=== PATIENT | male | born 1955 | race Caucasian/White ===

== ENCOUNTER → 2017-11-03 | Outpatient (CLI) | payer MEDICARE, OTHER ==
--- NOTE | 2017-11-03 15:30 | MR ---
EXAMINATION TYPE: MR cervical spine wo/w con DATE OF EXAM: 11/03/2017 COMPARISON: NONE HISTORY: Spondylosis with radiculopathy, cervical TECHNIQUE: Multiplanar, multisequence images of the cervical spine were acquired utilizing 7.5 mL intravenous Ga davist gadolinium contrast. C2-C3: No evidence for degenerative disc disease. No disc bulge/herniation or protrusion. No Canal stenosis. Foramina are patent bilaterally. C3-C4: Right lateral foraminal encroachment is present due to lateral extension of endplate disc comp moe greater than left. No central stenosis. Posterior disc bulge causes only mild anterior mass effec t on the thecal sac somewhat more eccentric towards the left. There is slight anterolateral mass effe ct on the thecal sac. Hypertrophic changes are present anteriorly. C4-C5: Rudimentary disc is present, there is no herniation or central stenosis, neural foraminal encr oachment. C5-C6: Posterior extension of endplate disc complex, retrolisthesis grade 1 C5-6 results in moderate central canal stenosis, there is lateral extension of endplate disc complex causing bilateral foramin al encroachment. C6-C7: There is loss of disc height and signal, posterior extension of endplate disc complex causes m ild anterior mass effect on the thecal sac, mild central stenosis, lateral extension of endplate disc complex causes bilateral foraminal encroachment. C7-T1: Some left-sided foraminal encroachment is present, there is some lateral extension of endplate , no significant disc herniation or central stenosis. Cervical segments are intact. There is reversal of the normal cervical lordosis. 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 Spondylosis is present and C5-6 with endplate discogenic marrow signa l change as well as at C6-7 with associated loss of disc height and signal. Cervical spinal cord is o f normal signal. Craniovertebral junction relationships are within normal limits. C1-2 shows probab le nerve sheath diverticula bilaterally. No abnormal enhancement following contrast administration. M ultilevel facet arthropathy changes are present. 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 Additional findings above.
== END | disposition home or self-care (01) ==
LOC: RADMRIMAIN 11:29
PROVIDERS: ATTEND Family Medicine
DX: M48.02 Spinal stenosis, cervical region (principal); M50.11 Cervical disc disorder with radiculopathy, high cervical region; M43.12 Spondylolisthesis, cervical region; M43.22 Fusion of spine, cervical region; M47.22 Other spondylosis with radiculopathy, cervical region; M48.8X2 Other specified spondylopathies, cervical region; M53.82 Other specified dorsopathies, cervical region; M46.82 Other specified inflammatory spondylopathies, cervical region
CPT/HCPCS: 82565; 72156; A9581

== ENCOUNTER → 2018-09-28 | Outpatient (CLI) | payer MEDICARE, OTHER ==
[2018-09-28 16:17] LABS: HCT 45.9 % (39.0-53.0); HGB 14.8 gm/dL (13.0-17.5); MCH 30.7 pg (25.0-35.0); MCHC 32.2 g/dL (31.0-37.0); MCV 95.4 fL (80.0-100.0); Mean Platelet Volume 6.5; Platelet Count 281 k/uL (150-450); RBC 4.81 m/uL (4.30-5.90); RDW 12.4 % (11.5-15.5)
[2018-09-28 17:40] LABS: Erythrocyte Sedimentation Rate 8 mm/hr (0-15)
[2018-09-29 05:45] LABS: Rheumatoid Factor 6 IU/mL (0-15)
[2018-09-29 07:21] LABS: Angiotensin-1 Converting Enz. 24 U/L (8-52)
[2018-09-29 12:41] LABS: IgG Subclass 3 23.8 mg/dL (11.0-85.0); IgG Subclass 4 15.9 mg/dL (3.0-175.0)
[2018-09-29 14:41] LABS: C-ANCA <1:20 Titer (<1:20); P-ANCA <1:20 Titer (<1:20)
[2018-09-29 15:04] LABS: Thyroid Stim Immun Quant <0.10 IU/L (<0.10)
== END | disposition home or self-care (01) ==
LOC: LABWHC1 15:37
PROVIDERS: ATTEND Ophthalmology Ophthalmic Plastic and Reconstructive Surgery
DX: H05.222 Edema of left orbit (principal)
CPT/HCPCS: 36415; 82164; 82787; 84443; 84445; 85027; 85652; 86038; 86235; 86255; 86376; 86431

== ENCOUNTER 2019-06-12 08:56 | Emergency (ER) | payer MEDICARE, OTHER ==
[2019-06-12 09:08] VITALS: TEMP 98.2
[2019-06-12] MEDS ORDERED: IBUPROFEN 600 MG TAB PO STA (09:50)
--- NOTE | 2019-06-12 10:06 | ED ---
Lower Extremity Injury HPI - General Chief Complaint: Extremity Injury, Lower Stated Complaint: rt knee pain Time Seen by Provider: 06/12/19 09:21 Source: patient, RN notes reviewed, old records reviewed Mode of arrival: ambulatory Limitations: physical limitation - History of Present Illness Initial Comments: This patient's a 63-year-old male, presents emergency department today for evaluation with chief complaint of her right knee pain and swelling. Patient's symptoms started on Wednesday. Patient's symptoms of been worse with ambulation. Patient reports some swelling and pain over the medial aspect of the knee. Patient reports it has happened before where he is required as needed be drained. He states he's previously seen an orthopedic to be drained. Patient has had no other significant complaints at this time. 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 He reports that he was prescribed knee brace would definitely 2 areas causes pressure over his knee. - Related Data Home Medications Medication Instructions Recorded Confirmed Cholecalciferol [Vitamin D3 (25 5,000 unit PO DAILY 06/12/19 06/12/19 Mcg = 1000 Iu)] Ibuprofen [Motrin] 800 mg PO TID PRN 06/12/19 06/12/19 Previous Rx's Medication Instructions Recorded Ibuprofen [Motrin] 600 mg PO Q8HR PRN #30 tab 06/12/19 Allergies Allergy/AdvReac Type Severity Reaction Status Date / Time No Known Allergies Allergy Verified 06/12/19 09:18 Review of Systems ROS Statement: Those systems with pertinent positive or pertinent negative responses have been documented in the HPI. ROS Other: All systems not noted in ROS Statement are negative. Past Medical History Past Medical History: No Reported History Additional Past Medical History / Comment(s): broken second and third vert. History of Any Multi-Drug Resistant Organisms: None Reported Past Surgical History: Hernia Repair Past Psychological History: No Psychological Hx Reported Smoking Status: Never smoker Past Alcohol Use History: None Reported Past Drug Use History: None Reported General Exam - General Exam Comments Initial Comments: This is a 63-year-old male. Alert and oriented 3. Patient appears in no significant distress. Limitations: physical limitation Head exam: Present: atraumatic Eye exam: Present: normal appearance, PERRL, EOMI. Absent: scleral icterus, conjunctival injection, periorbital swelling ENT exam: Present: normal exam, mucous membranes moist Neck exam: Present: normal inspection. Absent: tenderness, meningismus, lymphadenopathy Respiratory exam: Present: normal lung sounds bilaterally. Absent: respiratory distress, wheezes, rales, rhonchi, stridor Cardiovascular Exam: Present: regular rate, normal rhythm, normal heart sounds. Absent: systolic murmur, diastolic murmur, rubs, gallop, clicks GI/Abdominal exam: Present: soft, normal bowel sounds. Absent: distended, tenderness, guarding, rebound, rigid Extremities exam: Present: normal inspection, full ROM, normal capillary refill. Absent: tenderness, pedal edema, joint swelling, calf tenderness Right Knee exam: Present: full ROM, swelling. Absent: normal inspection Lower Leg exam: Present: normal inspection, full ROM Ankle exam: Present: normal inspection, full ROM Gait: observed and limited by pain Back exam: Present: normal inspection Neurological exam: Present: alert, oriented X3, CN II-XII intact Psychiatric exam: Present: normal affect, normal mood Skin exam: Present: warm, dry, intact, normal color. Absent: rash Course Vital Signs 06/12/19 06/12/19 09:03 11:52 Temperature 98.2 F Pulse Rate 83 70 Respiratory 17 16 Rate Blood Pressure 128/78 113/78 O2 Sat by Pulse 98 98 Oximetry Medical Decision Making - Medical Decision Making Patient is a 63-year-old male presents emergency Department stay for evaluation with chief complaint of right knee swelling pain worse with ambulation. Patient reports that this happened before and have his knee drained. No fall or trauma to the knee. At this time patient's x-ray shows evidence of swelling. He is able to bear weight. Patient requests to have any drained. I did attempt to drain any event with insertion of the nailsignificant fluid was removed, so Patient did not have any further drainage. Discussed Patient follow-up with [facility]. Discussed that this have Felipe wrap and ice and anti-inflammatory medicine as prescribed. - Radiology Data Radiology results: report reviewed Monitor soft tissue swelling. Underlying moderate to large knee effusion and recent surgery could reflect cause this injury or internal derangement. Consider MRI. Abdomen is of injury he did miss kill chondritis or infiltrate or process considerations. No acute osseous normality seen. Disposition Clinical Impression: Effusion, right knee Disposition: HOME SELF-CARE Condition: Good Instructions (If sedation given, give patient instructions): Swollen Knee Joint (ED) Additional Instructions: Advised to take a Motrin as prescribed. Patient should have follow-up with orthopedics. Return to the emergency department if any alarming signs or symptoms occur. Prescriptions: Ibuprofen [Motrin] 600 mg PO Q8HR PRN #30 tab PRN Reason: Pain Is patient prescribed a controlled substance at d/c from ED?: No Referrals: Bryce Melo MD [Primary Care Provider] - 1-2 days Hilario Kirkpatrick MD [STAFF PHYSICIAN] - 1-2 days Time of Disposition: 11:38
--- NOTE | 2019-06-12 10:54 | XR ---
EXAMINATION TYPE: XR knee complete RT DATE OF EXAM: 06/12/2019 COMPARISON: NONE HISTORY: 63-year-old male right knee pain and swelling TECHNIQUE: 3 views FINDINGS: Anterior and medial sided soft tissue swelling. Meniscal chondrocalcinosis. Mild degenerative spurrin g in the medial and patellofemoral compartments. Moderate to large knee joint effusion distending the suprapatellar pouch. No acute fracture, subluxation, or dislocation seen. IMPRESSION: 1. Medial and anterior soft tissue swelling. 2. Underlying moderate to large knee joint effusion. In the setting of a recent injury, findings coul d reflect an underlying occult osseous injury or internal derangement. Consider MRI to further evalua te. In the absence of an injury, CPPD (given meniscal chondrocalcinosis) or some other inflammatory p rocess are considerations. 3. No acute osseous abnormality seen.
[2019-06-12] MEDS ORDERED: LIDOCAINE 1% INJ 10MG/ML (20 ML MDV) SQ ONE (11:22)
[2019-06-12 11:54] VITALS: BP 113/78; PULSE 70; RESP 16
== END 2019-06-12 11:54 | disposition home or self-care (01) ==
LOC: EC 08:56
DX: M25.461 Effusion, right knee (principal); Z98.890 Other specified postprocedural states; Z87.81 Personal history of (healed) traumatic fracture
CPT/HCPCS: 99284

== ENCOUNTER 2023-06-25 07:21 | Day surgery (SDC) | payer MEDICARE, OTHER ==
[~2023-06-25 07:21] MED LIST: LIDOCAINE 1% (10MG/ML) FOR IV START INTRADERMA PRN
[2023-06-25] MEDS: LACTATED RINGERS 1,000 ML IV SCH ×2 (08:15→08:35)
[2023-06-25 08:28] VITALS: TEMP 97.6
[2023-06-25] MEDS ORDERED: PROPOFOL 10 MG/ML 20 ML VIAL IV ONE (08:36)
--- NOTE | 2023-06-25 08:59 | P.PCN ---
Date of Procedure: 06/25/23 Procedure(s) Performed: BRIEF HISTORY: Patient is a 67-year-old pleasant white male scheduled for an elective colonoscopy as a part of screening for colon cancer and family history of colon cancer. His brother was diagnosed with colon cancer at age 50. PROCEDURE PERFORMED: Colonoscopy. PREOPERATIVE DIAGNOSIS: Screening for colon cancer and family history of colon cancer. IV sedation per Anesthesia. PROCEDURE: After informed consent was obtained, the patient, was brought into the endoscopy unit. IV sedation was administered by Anesthesia under continuous monitoring. Digital rectal examination was normal. Initially the Olympus CF-160 flexible video colonoscope was then inserted in the rectum, gradually advanced into the cecum without any difficulty. Careful examination was performed as the scope was gradually being withdrawn. Ileocecal valve and the appendiceal orifice were visualized and appeared normal. Prep was excellent. Mucosa of the cecum, ascending colon, transverse colon, descending colon, sigmoid colon, and rectum appeared normal. Retroflexion was performed in the rectum and no lesions were seen. The patient tolerated the procedure well. IMPRESSION: Normal-appearing colon from rectum to cecum with no evidence of colorectal neoplasia. RECOMMENDATIONS: Findings of this examination were discussed with the patient as well as his family. He was advised to have a repeat screening colonoscopy in 5 years because of the family history of colon cancer.
[2023-06-25 09:30] VITALS: BP 123/74; PULSE 62; RESP 16
== END 2023-06-25 09:46 | disposition home or self-care (01) ==
LOC: ORWHC2ENDO 07:21
PROVIDERS: ATTEND Internal Medicine Gastroenterology
DX: Z12.11 Encounter for screening for malignant neoplasm of colon (principal); Z80.0 Family history of malignant neoplasm of digestive organs; Z79.899 Other long term (current) drug therapy
CPT/HCPCS: J2704; G0105